=== PATIENT | male | born 1985 | race Caucasian/White ===

== ENCOUNTER 2025-07-23 10:22 | Inpatient (IN) | payer MEDICAID, SELFPAY ==
[2025-07-23 10:27] VITALS: BP 121/77; PULSE 73; RESP 16; TEMP 36.8; O2SAT 96; BMI 28.8
[2025-07-23 10:37] LABS: Hematocrit 46.4 % (37-53); Hemoglobin 15.30 g/dL (11.27-16.99); Mean Corpuscular HGB Conc 33.0 g/dL (30-55); Mean Corpuscular Hemoglobin 29.5 pg (27-33); Mean Corpuscular Volume 89.6 fl (82-101); Nucleated Red Blood Cells % 0 %; Platelet Count 298 10^3/cmm (157-399); Red Blood Count 5.18 10^6/uL (3.85-5.65); White Blood Count 8.96 10^3/uL (3.29-11.43)
[2025-07-23 10:56] LABS: Alanine Aminotransferase 13 U/L (0-41); Albumin Level 4.3 g/dL (3.5-5.2); Alkaline Phosphatase 87 U/L (40-130); Anion Gap 17.1 (5-19); Aspartate Amino Transferase 12 U/L (0-40); Blood Urea Nitrogen 9 mg/dL (6-20); Calcium 9.1 mg/dL (8.5-10.5); Carbon Dioxide 23 mmol/L (22-29); Chloride 105 mmol/L (98-107); Creatinine Clr Calc Pharmacy 97.2518; Globulin 2.5 g/dL (1.3-4.6); Glucose 140 mg/dL (65-115); Osmolality Calculated 293 mOsm/kg (285-295); Potassium 4.1 mmol/L (3.5-5.1); Sodium 141 mmol/L (136-145); Total Protein 6.8 g/dL (6.6-8.7)
[2025-07-23 10:57] LABS: Acetaminophen < 5.0 ug/mL (10-30); Salicylate < 0.3 mg/dL (3-10)
--- NOTE | 2025-07-23 11:25 | ED.C_ITS ---
HPI - Psych 2 General: Chief Complaint: Psychiatric Symptoms Stated Complaint: SI Time Seen by Provider: 07/23/25 10:23 History of Present Illness: 39-year-old male presents emergency room with complaint of suicidal ideation. States has been building for the last several days his father a year ago. Patient states he has a history of bipolar and has been hospitalized in [place] in the past. He recently came to this area to participate in a local rehab since leaving the rehab about a week ago he has been staying at what he describes as a [facility]. He denies having any relapse of substance abuse. He previously had been using relatively large amounts of prescription pain medications. He does not have a specific plan at this time. Related Data Home Medications ?Medication ?Instructions ?Recorded ?Confirmed No Known Home Medications 07/23/2505/10 Allergies Allergy/AdvReac Type Severity Reaction Status Date / Time No Known Allergies Allergy Verified 07/23/25 10:30 Review of Systems 2 Const: Denies: fever(s) or chills Card: Denies: chest pain Resp: Denies: dyspnea GI: Denies: abdominal pain : Denies: dysuria, urinary frequency or urinary urgency Musc: Denies: neck pain or back pain Skin/Breast: Denies: rash Physical Exam 2 Const: COMMON NORMALS: no acute distress GENERAL APPEARANCE: cooperative and comfortable ORIENTATION/CONSCIOUSNESS: Yes awake, Yes oriented to person, Yes oriented to place and Yes oriented to time HENMT: COMMON NORMALS: normocephalic, atraumatic and hearing grossly normal bilaterally HEAD & SCALP: normocephalic and atraumatic Resp: COMMON NORMALS: normal respiratory effort, No retractions, No use of accessory muscles and clear to auscultation bilaterally AUSCULTATION: clear to auscultation bilaterally Cardio: COMMON NORMALS: regular rate, regular rhythm and No murmurs present (Cardio) RATE: regular rate RHYTHM: regular rhythm Extremity: COMMON NORMALS: normal to inspection, capillary refill normal, no clubbing, cyanosis or edema, no calf tenderness and no pedal edema Neuro: SENSORIUM/ORIENTATION: Yes oriented to person, Yes oriented to place and Yes oriented to time Skin: COMMON NORMALS: no rashes or lesions noted GENERAL SKIN EXAM: no rashes or lesions noted Course 2 Vital Signs: Vital signs: Vital Signs Temperature 97.9 F 07/23/25 14:00 Pulse Rate 64 07/23/25 14:00 Respiratory Rate 16 07/23/25 14:00 Blood Pressure 113/62 07/23/25 14:00 Pulse Oximetry 100 07/23/25 14:00 Oxygen Delivery Me thod Room Air 07/23/25 14:00 MDM - Psych Medical Decision Making Patient reports being suicidal has significant thoughts of harming self and escalating the last couple days triggered by having to deal with his father's dealing with estate issues. Does not have a specific plan but states he feels like today is the day. Will admit the patient to MPU discussed with his Dr. Orozco. Orders written. Medical Records I reviewed the patient's medical records. Lab Data I reviewed the patient's lab results. 07/23/25 10:32 07/23/25 10:32 Laboratory Results WBC 8.96 10^3/uL (3.29-11.43) 07/23/25 10:32 RBC 5.18 10^6/uL (3.85-5.65) 07/23/25 10:32 Hgb 15.30 g/dL (11.27-16.99) 07/23/25 10:32 Hct 46.4 % (37-53) 07/23/25 10:32 MCV 89.6 fl (82-101) 07/23/25 10:32 MCH 29.5 pg (27-33) 07/23/25 10:32 MCHC 33.0 g/dL (30-55) 07/23/25 10:32 RDW 12.3 % (12.1-15.1) 07/23/25 10:32 Plt Count 298 10^3/cmm (157-399) 07/23/25 10:32 MPV 9.8 fL (7.4-10.4) 07/23/25 10:32 Neut % (Auto) 67.4 % 07/23/25 10:32 Lymph % (Auto) 25.1 % 07/23/25 10:32 [place] % (Auto) 5.0 % 07/23/25 10:32 Eos % (Auto) 1.8 % 07/23/25 10:32 Baso % (Auto) 0.4 % 07/23/25 10:32 Neut # (Auto) 6.03 10^3/uL (1.8-7.7) 07/23/25 10:32 Lymph # (Auto) 2.3 10^3/uL (0.8-4.8) 07/23/25 10:32 [place] # (Auto) 0.5 10^3/uL (0.2-0.9) 07/23/25 10:32 Eos # (Auto) 0.2 10^3/uL (0.0-0.8) 07/23/25 10:32 Baso # (Auto) 0.0 10^3/uL (0.0-0.1) 07/23/25 10:32 Nucleated RBC % (auto) 0 % 07/23/25 10:32 Nucleated RBCs # 0.0 /100WBC 07/23/25 10:32 Sodium 141 mmol/L (136-145) 07/23/25 10:32 Potassium 4.1 mmol/L (3.5-5.1) 07/23/25 10:32 Chloride 105 mmol/L (98-107) 07/23/25 10:32 Carbon Dioxide 23 mmol/L (22-29) 07/23/25 10:32 Anion Gap 17.1 (5-19) 07/23/25 10:32 BUN 9 mg/dL (6-20) 07/23/25 10:32 Creatinine 1.1 mg/dL (0.7-1.2) 07/23/25 10:32 GFR Calculation 74.9 mL/min (90-130) L 07/23/25 10:32 Glucose 140 mg/dL (65-115) H 07/23/25 10:32 Calculated Osmolality 293 mOsm/kg (285-295) 07/23/25 10:32 Calcium 9.1 mg/dL (8.5-10.5) 07/23/25 10:32 Total Bilirubin 0.3 mg/dL (0.15-1.2) 07/23/25 10:32 AST 12 U/L (0-40) 07/23/25 10:32 ALT 13 U/L (0-41) 07/23/25 10:32 Alkaline Phosphatase 87 U/L (40-130) 07/23/25 10:32 Total Protein 6.8 g/dL (6.6-8.7) 07/23/25 10:32 Albumin 4.3 g/dL (3.5-5.2) 07/23/25 10:32 Globulin 2.5 g/dL (1.3-4.6) 07/23/25 10:32 Salicylates < 0.3 mg/dL (3-10) L 07/23/25 10:32 Acetaminophen < 5.0 ug/mL (10-30) L 07/23/25 10:32 All radiology interpretation(s) finalized by discharge Discharge Plan Discharge Patient Disposition: Admitted As Inpatient Admit Provider: Catalino Orozco Clinical Impression: Suicidal ideation Condition: Stable Coding Level of Care Code ED Bioinformatics Specialist for Jaxon Knowles
--- NOTE | 2025-07-23 12:34 | PC.NURSE ---
96 hour hold rights read to pt at this time. Security present.
[2025-07-23 12:43] VITALS: BP 134/85; PULSE 62; RESP 17; TEMP 36.9; O2SAT 97
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
[2025-07-23 14:00] VITALS: BP 113/62; PULSE 64; RESP 16; TEMP 36.6; O2SAT 100
--- NOTE | 2025-07-23 18:04 | PC.NURSE ---
Dr. Orozco gave verbal order for Benadryl 50mg PO Q 4hr prn for itching.
[2025-07-23 18:50] LABS: PCP Screen Urine Negative (Negative)
--- NOTE | 2025-07-23 19:50 | PC.NURSE ---
CONSULT DR GANDARA HERE TO SEE PATIENT IN REGARDS TO POSSIBLE POISON JEAN MARIE.
[2025-07-23 20:29] VITALS: BP 156/96; PULSE 75; RESP 20; TEMP 37.1; O2SAT 97
--- NOTE | 2025-07-23 20:45 | P.CONIM_ITS ---
Providers/Reason For Consult 2 Consulting Physician/Specialty*: ERIN GANDARA --DO--hospitalist Reason for Consult*: Management of poison kalyani Requesting Physician: Dr. Ernesto Bae Attending Physician: Catalino Orozco MD History of Present Illness History of Present Illness Usman Garcia is a 39 year old male with medical history significant for suicidal ideation, bipolar disorder with psychiatric hospitalization in the last past year. This time patient presented to the emergency room today complaining of suicidal thoughts but no plans. Patient was screened and cleared to go to psych patient came to the [facility]. This psychiatrist Dr. Ernesto Bae called and consulted me on this patient regarding a poison kalyani he had had for me to see and evaluate and treat. I have seen and evaluated patient at this time and patient related that this has been coming and going and extremely itchy. One of the lesions looks typically like poison kalyani with tracking. Patient had it in the arms side of the belly and also on the legs Patient had been using a Hydrocortisol cream topically and this had not helped. I have seen and evaluated patient patient need to take something systemic like oral steroid and also with an added Benadryl to help. Patient looks good and denies any complaints aside from this medically patient is send to be stable and okay from medical standpoint that we will optimize poison kalyani and treat. Review of Systems 2 Narrative: System review upon tenogram reviewed we are entirely unremarkable. Except for the integumentary system significant for poison kalyani Medications/Allergies Home Medications ?Medication ?Instructions ?Recorded ?Confirmed ?Last Taken ?Type No Known Home Medications 07/23/2505/10 Unknown History Allergies Allergy/AdvReac Type Severity Reaction Status Date / Time No Known Allergies Allergy Verified 07/23/25 10:30 Current Medications Generic Name Dose Route Start Last Admin Trade Name Freq PRN Reason Stop Dose Admin Diphenhydramine HCl 50 mg 07/23/25 18:03 07/23/25 18:53 Diphenhydramine 50 Mg Capsule PO 50 mg Q4H PRN Administration ITCHING Hydrocortisone 1 applic 07/23/25 17:40 07/23/25 17:56 Hydrocortisone 1% Cream 28 Gm TOPICAL 1 applic QID PRN Administration RASH Nicotine Polacrilex 4 mg 07/23/25 17:26 07/23/25 17:56 Nicotine 4 Mg Lozenge MUCOUS MEM 4 mg Q2H PRN Administration NICOTINE CRAVINGS Olanzapine 5 mg 07/23/25 12:43 07/23/25 20:38 Olanzapine 5 Mg Odt PO 5 mg Q4H PRN Administration Agitation/Psychosis Vitals/I&O/Wt Last Vital Signs Temp 98.8 F 07/23/25 20:29 Pulse 75 07/23/25 20:29 Resp 20 H 07/23/25 20:29 BP 156/96 07/23/25 20:29 Pulse Ox 97 07/23/25 20:29 O2 Del Method Room Air 07/23/25 20:29 Weight last 48 hrs Weight 86.183 kg Physical Exam 2 Narrative: The patient looks well in no apparent distress however with obesity. BMI 28.9 kg/m? HEENT normocephalic atraumatic neck neck is supple cardiovascular heart rate is regular lungs are pretty much clear abdomen soft nontender nondistended unremarkable extremities are intact no edema has good pulses neurology has no focality integumentary has scattered area of poison kalyani lesions and extremely itchy for the patient. lab studies lab studies reviewed and noted. Lab studies found to be normal. Data 07/23/25 10:32 07/23/25 10:32 A&P Assessment and plan 1. Poison kalyani dermatitis: 2. Suicidal ideation: Plan: Poison kalyani dermatitis - Patient had had this off and on for the past 3 weeks - This need to be treated systemically not topically - I have ordered steroid 20 mg once daily for 7 days with a normal dose of 40 mg orally and 50 mg of Benadryl now. - Patient will continue Benadryl 25 mg twice daily x 7 days and should not operate any vehicle while on Benadryl. Suicidal ideation-this is deferred to the primary team psychiatry for care and treatment I appreciate this consult allowing me to participate in the care of your patient. Will follow-up for care. PDMP PDMP Reviewed: Not Reviewed Consult Attestations 2 Medical Necessity Statement: Patient is with poison kalyani based on this alone this will not have patient stay overnight in the hospital bed patient is here for suicidal ideation and being treated by the psychiatry. Poison kalyani at this time has been addressed. Coding Level of Care Code 85144 Diagnoses Poison kalyani dermatitis L23.7 Suicidal ideation R45.851 Time Spent (min) 60
[2025-07-24 06:00] VITALS: BP 118/74; PULSE 63; RESP 16; TEMP 37.1; O2SAT 94
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
--- NOTE | 2025-07-24 13:11 | P.PN_ITS ---
Subjective 2 Subjective: lesions improved. Vitals/I&O/Wt Last Vital Signs Temp 98.8 F 07/24/25 06:00 Pulse 63 07/24/25 06:00 Resp 16 07/24/25 06:00 BP 118/74 07/24/25 06:00 Pulse Ox 94 07/24/25 06:00 O2 Del Method Room Air 07/24/25 06:00 Weight last 48 hrs Weight 86.183 kg Physical Exam 2 Const: COMMON NORMALS: no acute distress, average body habitus, patient oriented x3 and healthy appearing HENMT: COMMON NORMALS: normocephalic and atraumatic HEAD & SCALP: n ormocephalic and atraumatic Eye: COMMON NORMALS: Equal, round and reactive pupils present and EOMs intact bilaterally PUPIL: Yes Equal, round and reactive pupils present Resp: COMMON NORMALS: normal respiratory effort, No retractions, No use of accessory muscles and clear to auscultation bilaterally AUSCULTATION: clear to auscultation bilaterally Cardio: COMMON NORMALS: regular rate, regular rhythm, S1 normal heart sound present, S2 normal heart sound present, No gallops present (Cardio), No murmurs present (Cardio), No rub (Cardio) and Peripheral pulses 2+ throughout RATE: r egular rate RHYTHM: regular rhythm HEART SOUNDS: S1 normal heart sound present and S2 normal heart sound present PERIPHERAL PULSES: Peripheral pulses 2+ throughout GI: COMMON NORMALS: Soft to palpation, non-tender, no masses and no bruits PALPATION: Yes Soft to palpation Neuro: COMMON NORMALS: patient oriented x3, no focal motor deficits and no sensory deficits noted Skin: NARRATIVE SKIN EXAM: scattered rash over left anterior forearm and BL shins, as well as flanks, appear to be healing. Data 07/23/25 10:32 07/23/25 10:32 A&P Assessment and plan 1. Poison kalyani dermatitis: 2. Suicidal ideation: Plan: 39 year old male presenting with SI, admitted to [facility]. Hospitalists consulted for medical management of skin lesions. 1. Poison kalyani dermatitis: - Patient had had this off and on for the past 3 weeks - Started systemic treatment with steroid 20 mg once daily for 7 days - cont. benadryl 50 mg Q4H PRN. 2. Suicidal ideation: - treatment per psychiatry Disposition: - appreciate this consult allowing me to participate in the care of your patient. Will follow-up for care. PDMP PDMP Reviewed: Not Reviewed Attestations 2 Medical Necessity Statement*: ongoing inpatient treatment in [facility] for SI. Time Spent in Patient Care: 16 - 35 minutes (>than 50% of time sp ent in counselling and/or direct pt care on unit) . Coding Level of Care Code Acute Code for [facility] Fwd Diagnoses Poison kalyani dermatitis L23.7 Suicidal ideation R45.851
[2025-07-24 13:25] VITALS: BP 149/69; PULSE 67; RESP 16; TEMP 37.1; O2SAT 96
[2025-07-24 22:00] VITALS: BP 131/73; PULSE 82; RESP 18; TEMP 37.2; O2SAT 98
[2025-07-25 06:00] VITALS: BP 112/52; PULSE 79; RESP 18; TEMP 36.6; O2SAT 95
--- NOTE | 2025-07-25 07:28 | P.NPUPN_ITS ---
Subjective NPU 2 Subjective: Patient presented today reporting things are going fairly well. He continues to make calls to rehab and is trying to determine the options that he has at these different places. Otherwise he endorsed a plan to continue his medication as prescribed and take what ever opportunity presents itself soon as possible. He denied any side effects to his medication. Mental Status Exam 2 MSE Comments: This is an overweight versus obese white male in hospital side with limited grooming but adequate eye contact. No abnormal movements. Cooperative with exam in mild to moderate distress. Speech was mostly normal rate and volume. Mood described as a little better and here, affect congruent. Thought process organized. Thought content: Patient denied current suicidal or homicidal ideation, no delusions reported or noted, he denied any auditory or visual hallucinations. Reports struggling with depression and anxiety, with roots in past traumatic events, including the suicide of his father last December. Experiences tiredness and has been burning the midnight oil. Stressors include past traumatic events, substance use, and legal issues. Demonstrates reasoning and understanding in discussions about fishing techniques and personal accountability. Attention and concentration were intact and memory appeared reliable but none were formally tested. He is alert and oriented x 3. Insight appears fair judgment is limited and impulse control is impaired. Vitals/I&O/Wt Last Vital Signs Temp 97.9 F 07/25/25 06:00 Pulse 79 07/25/25 06:00 Resp 18 07/25/25 06:00 BP 112/52 07/25/25 06:00 Pulse Ox 95 07/25/25 06:00 O2 Del Method Room Air 07/25/25 06:00 Weight last 48 hrs Weight 86.183 kg Data NPU 07/23/25 10:32 07/23/25 10:32 A&P Assessment and plan 1. Poison kalyani dermatitis: 2. Suicidal ideation: 3. Depression: 4. Bereavement: 5. Cannabis use disorder: 6. Opioid use disorder, severe, on maintenance therapy: Plan: This is a 39-year-old white male with a long history of addiction and mental health issues who presents after relapsing at a sober living facility. He endorses being hopeful to get into rehab and restart the journey of recovery. Substance use disorder with recent relapse following cessation of Suboxone approximately two weeks ago. Ongoing depressive and anxiety symptoms, with history of trauma and bereavement contributing to psychological distress. Medication nonadherence secondary to loss of access and insurance uncertainty. Plan Restartemedications as previously prescribed. Spoke with nursing staff to confirm current medication regimen and initiate appropriate therapy. Encouraged taking recovery one day at a time to support sustained sobriety. Recommended connecting with supportive resources and facilities, with follow-up to ensure engagement and continued support. 1. Restart medications. Need to confirm medications since they were provided by [facility]. 2. Encourage individual, group and milieu therapy. 3. Continue every 15 minute checks for safety. 4. Obtain collateral information. PDMP PDMP Reviewed: Not Reviewed Involuntary Hold Information 2 Hold Status: Date/Time Hold Expires: voluntary Attestations NPU 2 Medical Necessity Statement*: Inpatient hospitalization is medically necessary and the clinically appropriate intervention at this time. Will monitor/initiate medications and make changes as indicated. Likely length of stay 2-4 days. Coding Level of Care Code Acute Code for [facility] Fwd Diagnoses Poison kalyani dermatitis L23.7 Suicidal ideation R45.851 Depression F32.A Bereavement Z63.4 Cannabis use disorder F12.90 Opioid use disorder, severe, on maintenance therapy F11.20
--- NOTE | 2025-07-25 13:41 | P.PN_ITS ---
Subjective 2 Subjective: Skin lesions improving. Vitals/I&O/Wt Last Vital Signs Temp 97.9 F 07/25/25 06:00 Pulse 79 07/25/25 06:00 Resp 18 07/25/25 06:00 BP 112/52 07/25/25 06:00 Pulse Ox 95 07/25/25 06:00 O2 Del Method Room Air 07/25/25 06:00 Physical Exam 2 Narrative: Physical Exam Const: no acute distress, average body habi tus, patient orien oz x3 and healthy appearing HENMT: normocephalic and atraumatic Eye: Equal, round and r eactive pupils pre sent and EOMs inta ct bilaterally Resp: normal respiratory effort, No retrac tions, No use of a ccessory muscles a nd clear to auscul tation bilaterally Cardio: regular rate, regu lar rhythm, S1/S2 normal, No gallops , No murmurs, No r ub. Peripheral pul ses 2+ throughout GI: Soft to palpation, non-tender, no ma sses Neuro: Alert & oriented x 3, no focal motor deficits and no se nsory deficits not ed Skin: Scattered rash ove r left anterior fo rearm and BL shins , as well as flank s, improved from p rior. Data 07/23/25 10:32 07/23/25 10:32 A&P Assessment and plan 1. Poison kalyani dermatitis: 2. Suicidal ideation: Plan: 39 year old male presenting with SI, [facility] Hospitalists consulted for medical management of skin lesions. 1. Poison kalyani dermatitis: - Patient has had this off and on for the past 3 weeks - Started systemic treatment with steroid 20 mg once daily for 7 days - cont. benadryl 50 mg Q4H PRN. 2. Suicidal ideation: - treatment per psychiatry Disposition: - appreciate this consult allowing me to participate in the care of your patient. Will follow-up for care. PDMP PDMP Reviewed: Not Reviewed Attestations 2 Medical Necessity Statement*: Ongoing inpatient per psychiatry recommendations. Time Spent in Patient Care: 16 - 35 minutes (>than 50% of time sp ent in counselling and/or direct pt care on unit) . Coding Level of Care Code Acute Code for [facility] Fw Diagnoses Poison kalyani dermatitis L23.7 Suicidal ideation R45.851
[2025-07-25 14:00] VITALS: BP 170/96; PULSE 72; RESP 19; O2SAT 99
[2025-07-25 20:27] VITALS: BP 131/63; PULSE 67; RESP 18; TEMP 37.1; O2SAT 96
[2025-07-26 06:00] VITALS: BP 157/75; PULSE 58; RESP 17; TEMP 37; O2SAT 97
--- NOTE | 2025-07-26 13:56 | P.PN_ITS ---
Subjective 2 Subjective: rash improving. Vitals/I&O/Wt Last Vital Signs Temp 98.6 F 07/26/25 06:00 Pulse 58 L 07/26/25 06:00 Resp 17 07/26/25 06:00 BP 157/75 07/26/25 06:00 Pulse Ox 97 07/26/25 06:00 O2 Del Method Room Air 07/26/25 06:00 Physical Exam 2 Narrative: Physical Exam Const: no acute distress, average body habitus, patient oriented x3 and healthy appearing HENMT: normocephalic and atraumatic Eye: Equal, round and reactive pupils present and EOMs intact bilaterally Resp: normal respiratory effort, No retractions, No use of accessory muscles and clear to auscultation bilaterally Cardio: regular rate, regular rhythm, S1/S2 normal, No gallops, No murmurs, No rub. Peripheral pulses 2+ throughout GI: Soft to palpation, non-tender, no masses Neuro: Alert & oriented x 3, no focal motor deficits and no sensory deficits noted Skin: Scattered rash over left anterior forearm and BL shins, as well as flanks, improved from prior. Data 07/23/25 10:32 07/23/25 10:32 A&P Assessment and plan 1. Suicidal ideation: 2. Poison kalyani dermatitis: Plan: 39 year old male presenting with SI, [facility]. Hospitalists consulted for medical management of skin lesions. 1. Poison kalyani dermatitis: - Patient has had this off and on for the past 3 weeks - Started systemic treatment with steroid 20 mg once daily for 7 days, or if resolved can stop steroids. - cont. benadryl 50 mg Q4H PRN. 2. Suicidal ideation: - treatment per psychiatry Disposition: - appreciate this consult allowing me to participate in the care of your patient. Will follow-up for care. PDMP PDMP Reviewed: Not Reviewed Attestations 2 Medical Necessity Statement*: ongoing inpatient psychiatric care per psychiatrist recommendations. Time Spent in Patient Care: 16 - 35 minutes (>than 50% of time sp ent in counselling and/or direct pt care on unit) . Coding Level of Care Code Acute Code for [facility] Fwd Diagnoses Suicidal ideation R45.851 Poison kalyani dermatitis L23.7
[2025-07-26 14:00] VITALS: BP 133/73; PULSE 86; RESP 18; TEMP 37.1; O2SAT 96
--- NOTE | 2025-07-26 19:38 | P.NPUPN_ITS ---
Subjective NPU 2 Subjective: Patient presented today reporting that things are improving. He was able to work with the program in the community and he will be excepted on Tuesday. We agreed we would restart his medication after of discussion of the risks, benefits and alternatives he understood and agreed to proceed as is documented in this note. We restarted his medications except for the Suboxone as the program he is going to will not allow controlled substances. He discussed his challenging time that his last sober living program. He denied any side effects to the medication. Mental Status Exam 2 MSE Comments: This is an overweight versus obese white male in hospital side with limited grooming but adequate eye contact. No abnormal movements. Cooperative with exam in mild distress. Speech was mostly normal rate and volume. Mood described as getting better, affect congruent. Thought process organized. Thought content: Patient denied current suicidal or homicidal ideation, no delusions reported or noted, he denied any auditory or visual hallucinations. Attention and concentration were intact and memory appeared reliable but none were formally tested. He is alert and oriented x 3. Insight appears fair judgment is limited but improving and impulse control is limited. Vitals/I&O/Wt Last Vital Signs Temp 98.7 F 07/26/25 14:00 Pulse 86 07/26/25 14:00 Resp 18 07/26/25 14:00 BP 133/73 07/26/25 14:00 Pulse Ox 96 07/26/25 14:00 O2 Del Method Room Air 07/26/25 14:00 Data NPU 07/23/25 10:32 07/23/25 10:32 A&P Assessment and plan 1. Poison kalyani dermatitis: 2. Suicidal ideation: 3. Depression: 4. Bereavement: 5. Cannabis use disorder: 6. Opioid use disorder, severe, on maintenance therapy: Plan: This is a 39-year-old white male with a long history of addiction and mental health issues who presents after relapsing at a sober living facility. He endorses being hopeful to get into rehab and restart the journey of recovery. Substance use disorder with recent relapse following cessation of Suboxone approximately two weeks ago. Ongoing depressive and anxiety symptoms, with history of trauma and bereavement contributing to psychological distress. Medication nonadherence secondary to loss of access and insurance uncertainty. Plan Restartemedications as previously prescribed. Spoke with nursing staff to confirm current medication regimen and initiate appropriate therapy. Encouraged taking recovery one day at a time to support sustained sobriety. Recommended connecting with supportive resources and facilities, with follow-up to ensure engagement and continued support. 1. Restart medications. Need to confirm medications since they were provided by [facility]. Medications confirmed and restarted at appropriate doses. Patient to start Suboxone as he was excepted at a program that does not allow controlled substances 2. Encourage individual, group and milieu therapy. 3. Continue every 15 minute checks for safety. 4. Obtain collateral information. 5. Plan for discharge on Tuesday to sober living program. PDMP PDMP Reviewed: Not Reviewed Involuntary Hold Information 2 Hold Status: Date/Time Hold Expires: voluntary Attestations NPU 2 Medical Necessity Statement*: Inpatient hospitalization is medically necessary and the clinically appropriate intervention at this time. Will monitor/initiate medications and make changes as indicated. Likely length of stay 3 days. Coding Level of Care Code Acute Code for g Fwd Diagnoses Poison kalyani dermatitis L23.7 Suicidal ideation R45.851 Depression F32.A Bereavement Z63.4 Cannabis use disorder F12.90 Opioid use disorder, severe, on maintenance therapy F11.20
[2025-07-26 21:59] VITALS: BP 166/87; PULSE 77; RESP 18; TEMP 36.9; O2SAT 90
[2025-07-27 06:00] VITALS: BP 123/80; PULSE 65; RESP 18; TEMP 36.8; O2SAT 98
--- NOTE | 2025-07-27 11:00 | P.NPUPN_ITS ---
Subjective NPU 2 Subjective: Patient presented today reporting that he he was wondering about the Suboxone and we discussed the fact that the place that he is planning on attending would not allow for any controlled substances. We discussed the fact that we would look into Sublocade and possibly also consider that if he does not stay with this program he could in fact work with his [facility] provider and get on Suboxone later but for now we are trying to did not interfere with the opportunity he has on Tuesday. He denied any side effects to his medication. Mental Status Exam 2 MSE Comments: This is an overweight versus obese white male in hospital side with improving grooming but adequate eye contact. No abnormal movements. Cooperative with exam in mild distress. Speech was mostly normal rate and volume. Mood described as getting better, affect congruent. Thought process organized. Thought content: Patient denied current suicidal or homicidal ideation, no delusions reported or noted, he denied any auditory or visual hallucinations. Attention and concentration were intact and memory appeared reliable but none were formally tested. He is alert and oriented x 3. Insight appears fair judgment is limited but improving and impulse control is limited. Vitals/I&O/Wt Last Vital Signs Temp 98.3 F 07/27/25 06:00 Pulse 65 07/27/25 06:00 Resp 18 07/27/25 06:00 BP 123/80 07/27/25 06:00 Pulse Ox 98 07/27/25 06:00 O2 Del Method Room Air 07/27/25 06:00 Weight last 48 hrs Weight 123.196 kg Data NPU 07/23/25 10:32 07/23/25 10:32 A&P Assessment and plan 1. Poison kalyani dermatitis: 2. Suicidal ideation: 3. Depression: 4. Bereavement: 5. Cannabis use disorder: 6. Opioid use disorder, severe, on maintenance therapy: Plan: This is a 39-year-old white male with a long history of addiction and mental health issues who presents after relapsing at a sober living facility. He endorses being hopeful to get into rehab and restart the journey of recovery. Substance use disorder with recent relapse following cessation of Suboxone approximately two weeks ago. Ongoing depressive and anxiety symptoms, with history of trauma and bereavement contributing to psychological distress. Medication nonadherence secondary to loss of access and insurance uncertainty. Plan Restartemedications as previously prescribed. Spoke with nursing staff to confirm current medication regimen and initiate appropriate therapy. Encouraged taking recovery one day at a time to support sustained sobriety. Recommended connecting with supportive resources and facilities, with follow-up to ensure engagement and continued support. 1. Restart medications. Need to confirm medications since they were provided by [facility]. Medications confirmed and restarted at appropriate doses. Patient to start Suboxone as he was excepted at a program that does not allow controlled substances 2. Encourage individual, group and milieu therapy. 3. Continue every 15 minute checks for safety. 4. Obtain collateral information. 5. Plan for discharge on Tuesday to sober living program. PDMP PDMP Reviewed: Not Reviewed Involuntary Hold Information 2 Hold Status: Date/Time Hold Expires: voluntary Attestations NPU 2 Medical Necessity Statement*: Inpatient hospitalization is medically necessary and the clinically appropriate intervention at this time. Will monitor/initiate medications and make changes as indicated. Likely length of stay 2 days. Coding Level of Care Code Acute Code for [facility] Fwd Diagnoses Poison kalyani dermatitis L23.7 Suicidal ideation R45.851 Depression F32.A Bereavement Z63.4 Cannabis use disorder F12.90 Opioid use disorder, severe, on maintenance therapy F11.20
[2025-07-27] MEDS: venlafaxine ER (24HR) 75 mg Capsule PO (11:52)
[2025-07-27 12:56] VITALS: BP 128/76; PULSE 72; RESP 18; TEMP 37; O2SAT 94
--- NOTE | 2025-07-27 15:51 | P.PN_ITS ---
Subjective 2 Subjective: Rash has improved. Vitals/I&O/Wt Last Vital Signs Temp 98.6 F 07/27/25 12:56 Pulse 72 07/27/25 12:56 Resp 18 07/27/25 12:56 BP 128/76 07/27/25 12:56 Pulse Ox 94 07/27/25 12:56 O2 Del Method Room Air 07/27/25 12:56 Physical Exam 2 Narrative: Physical Exam Const: no acute distress, average body habitus, patient oriented x3 and healthy appearing HENMT: normocephalic and atraumatic Eye: Equal, round and reactive pupils present and EOMs intact bilaterally Resp: normal respiratory effort, No retractions, No use of accessory muscles and clear to auscultation bilaterally Cardio: regular rate, regular rhythm, S1/S2 normal, No gallops, No murmurs, No rub. Peripheral pulses 2+ throughout GI: Soft to palpation, non-tender, no masses Neuro: Alert & oriented x 3, no focal motor deficits and no sensory deficits noted Skin: Scattered rash over left anterior forearm and BL shins, as well as flanks, improved from prior. Data 07/23/25 10:32 07/23/25 10:32 A&P Assessment and plan 1. Poison kalyani dermatitis: 2. Suicidal ideation: Plan: 39 year old male presenting with SI, [facility] Hospitalists consulted for medical management of skin lesions. 1. Poison kalyani dermatitis: - Patient has had this off and on for the past 3 weeks - Started systemic treatment with steroid 20 mg once daily for 7 days, or if resolved can stop steroids. - cont. benadryl 50 mg Q4H PRN. 2. Suicidal ideation: - treatment per psychiatry Disposition: - appreciate this consult allowing me to participate in the care of your patient. Will follow-up for care. - the patient is planning on entering a sober living inpatient program on Tuesday. PDMP PDMP Reviewed: Not Reviewed Attestations 2 Medical Necessity Statement*: ongoing inpatient treatment per psychiatry recommendations. Coding Level of Care Code Acute Code for [facility] Fw Diagnoses Poison kalyani dermatitis L23.7 Suicidal ideation R45.851
[2025-07-27 19:52] VITALS: BP 123/75; PULSE 67; RESP 18; TEMP 37.2; O2SAT 95
[2025-07-28 06:00] VITALS: BP 139/85; PULSE 78; RESP 18; TEMP 36.5; O2SAT 97
[2025-07-28] MEDS: venlafaxine ER (24HR) 75 mg Capsule PO (08:25)
--- NOTE | 2025-07-28 11:48 | P.PN_ITS ---
Subjective 2 Subjective: Lesions improved. Vitals/I&O/Wt Last Vital Signs Temp 97.7 F 07/28/25 06:00 Pulse 78 07/28/25 06:00 Resp 18 07/28/25 06:00 BP 139/85 07/28/25 06:00 Pulse Ox 97 07/28/25 06:00 O2 Del Method Room Air 07/28/25 06:00 Weight last 48 hrs Weight 123.196 kg Physical Exam 2 Narrative: Physical Exam Const: no acute distress, average body habitus, patient oriented x3 and healthy appearing HENMT: normocephalic and atraumatic Eye: Equal, round and reactive pupils present and EOMs intact bilaterally Resp: normal respiratory effort, No retractions, No use of accessory muscles and clear to auscultation bilaterally Cardio: regular rate, regular rhythm, S1/S2 normal, No gallops, No murmurs, No rub. Peripheral pulses 2+ throughout GI: Soft to palpation, non-tender, no masses Neuro: Alert & oriented x 3, no focal motor deficits and no sensory deficits noted Skin: Scattered rash over left anterior forearm and BL shins, as well as flanks, improved from prior. Data 07/23/25 10:32 07/23/25 10:32 A&P Assessment and plan 1. Opioid use disorder, severe, on maintenance therapy: 2. Cannabis use disorder: 3. Poison kalyani dermatitis: 4. Suicidal ideation: Plan: 39 year old male presenting with SI, [facility] Hospitalists consulted for medical management of skin lesions. 1. Poison kalyani dermatitis: - Patient has had this off and on for the past 3 weeks - Started systemic treatment with steroid 20 mg once daily for 7 days, or if resolved can stop steroids. - cont. benadryl 50 mg Q4H PRN. 2. Suicidal ideation: - treatment per psychiatry Disposition: - appreciate this consult allowing me to participate in the care of your patient. Will follow-up for care. - the patient is planning on entering a sober living inpatient program on Tuesday. PDMP PDMP Reviewed: Not Reviewed Attestations 2 Medical Necessity Statement*: Ongoing neuropsych admission per psychiatry recs. Coding Level of Care Code Acute Code for [facility] Fwd Diagnoses Opioid use disorder, severe, on maintenance therapy F11.20 Cannabis use disorder F12.90 Poison kalyani dermatitis L23.7 Suicidal ideation R45.851
[2025-07-28 13:44] VITALS: BP 145/88; PULSE 78; RESP 16; TEMP 37.3; O2SAT 96
--- NOTE | 2025-07-28 14:41 | P.NPUPN_ITS ---
Subjective NPU 2 Subjective: Patient presented today reporting that he is doing fine. He appears to be looking forward to discharge tomorrow and connecting with the sober living program. We discussed again a process by which she could resume the Suboxone if he desired. But this new program is not excepted every 4 with controlled substances. And he only had a 1 week prescriptions of his Suboxone since he left [facility]. We discussed working with the social work team tomorrow to make arrangements to get him to the facility. He denied any side effects of medication. Mental Status Exam 2 MSE Comments: This is an overweight versus obese white male in hospital side with improving grooming but adequate eye contact. No abnormal movements. Cooperative with exam in mild distress. Speech was mostly normal rate and volume. Mood described as getting better, affect congruent. Thought process organized. Thought content: Patient denied current suicidal or homicidal ideation, no delusions reported or noted, he denied any auditory or visual hallucinations. Attention and concentration were intact and memory appeared reliable but none were formally tested. He is alert and oriented x 3. Insight appears fair judgment is limited but improving and impulse control is limited. Vitals/I&O/Wt Last Vital Signs Temp 99.1 F 07/28/25 13:44 Pulse 78 07/28/25 13:44 Resp 16 07/28/25 13:44 BP 145/88 07/28/25 13:44 Pulse Ox 96 07/28/25 13:44 O2 Del Method Room Air 07/28/25 13:44 Weight last 48 hrs Weight 123.196 kg Data NPU 07/23/25 10:32 07/23/25 10:32 A&P Assessment and plan 1. Poison kalyani dermatitis: 2. Suicidal ideation: 3. Depression: 4. Bereavement: 5. Cannabis use disorder: 6. Opioid use disorder, severe, on maintenance therapy: Plan: This is a 39-year-old white male with a long history of addiction and mental health issues who presents after relapsing at a sober living facility. He endorses being hopeful to get into rehab and restart the journey of recovery. Substance use disorder with recent relapse following cessation of Suboxone approximately two weeks ago. Ongoing depressive and anxiety symptoms, with history of trauma and bereavement contributing to psychological distress. Medication nonadherence secondary to loss of access and insurance uncertainty. Plan Restartemedications as previously prescribed. Spoke with nursing staff to confirm current medication regimen and initiate appropriate therapy. Encouraged taking recovery one day at a time to support sustained sobriety. Recommended connecting with supportive resources and facilities, with follow-up to ensure engagement and continued support. 1. Restart medications. Need to confirm medications since they were provided by [facility]. Medications confirmed and restarted at appropriate doses. Patient to start Suboxone as he was excepted at a program that does not allow controlled substances 2. Encourage individual, group and milieu therapy. 3. Continue every 15 minute checks for safety. 4. Obtain collateral information. 5. Plan for discharge on Tuesday to sober living program. PDMP PDMP Reviewed: Not Reviewed Involuntary Hold Information 2 Hold Status: Date/Time Hold Expires: voluntary Attestations NPU 2 Medical Necessity Statement*: Inpatient hospitalization is medically necessary and the clinically appropriate intervention at this time. Will monitor/initiate medications and make changes as indicated. Likely length of stay 1 days. Coding Level of Care Code Acute Code for [facility] Fwd Diagnoses Poison kalyani dermatitis L23.7 Suicidal ideation R45.851 Depression F32.A Bereavement Z63.4 Cannabis use disorder F12.90 Opioid use disorder, severe, on maintenance therapy F11.20
[2025-07-28 19:46] VITALS: BP 155/98; PULSE 75; RESP 18; O2SAT 97
[2025-07-29 06:00] VITALS: BP 138/79; PULSE 64; RESP 18; TEMP 37; O2SAT 98
[2025-07-29] MEDS: venlafaxine ER (24HR) 75 mg Capsule PO (08:43)
--- NOTE | 2025-07-29 12:18 | W.PM.NPUDCS ---
Diagnoses at Discharge Discharge Diagnosis 1. Poison kalyani dermatitis: 2. Suicidal ideation: 3. Depression: 4. Bereavement: 5. Cannabis use disorder: 6. Opioid use disorder, severe, on maintenance therapy: Reason for Visit Reason for Visit: SI Involuntary Hold Information Hold Status: Date/Time Hold Expires: voluntary Discharge Data Studies Completed and Pending: Laboratory Results WBC 8.96 10^3/uL (3.2 9-11.43) 07/23/25 10:32 RBC 5.18 10^6/uL (3.8 5-5.65) 07/23/25 10:32 Hgb 15.30 g/dL (11.27 -16.99) 07/23/25 10:32 Hct 46.4 % (37-53) 07/23/25 10:32 MCV 89.6 fl (82-101) 07/23/25 10:32 MCH 29.5 pg (27-33) 07/23/25 10:32 MCHC 33.0 g/dL (30-55) 07/23/25 10:32 RDW 12.3 % (12.1-15.1 ) 07/23/25 10:32 Plt Count 298 10^3/cmm (157 -399) 07/23/25 10:32 MPV 9.8 fL (7.4-10.4) 07/23/25 10:32 Neut % (Auto) 67.4 % 07/23/25 10:32 Lymph % (Auto) 25.1 % 07/23/25 10:32 [place] % (Auto) 5.0 % 07/23/25 10:32 Eos % (Auto) 1.8 % 07/23/25 10:32 Baso % (Auto) 0.4 % 07/23/25 10:32 Neut # (Auto) 6.03 10^3/uL (1.8 -7.7) 07/23/25 10:32 Lymph # (Auto) 2.3 10^3/uL (0.8- 4.8) 07/23/25 10:32 [place] # (Auto) 0.5 10^3/uL (0.2- 0.9) 07/23/25 10:32 Eos # (Auto) 0.2 10^3/uL (0.0- 0.8) 07/23/25 10:32 Baso # (Auto) 0.0 10^3/uL (0.0- 0.1) 07/23/25 10:32 Nucleated RBC % (a uto) 0 % 07/23/25 10:32 Nucleated RBCs # 0.0 /100WBC 07/23/25 10:32 Sodium 141 mmol/L (136-1 45) 07/23/25 10:32 Potassium 4.1 mmol/L (3.5-5 .1) 07/23/25 10:32 Chloride 105 mmol/L (98-10 7) 07/23/25 10:32 Carbon Dioxide 23 mmol/L (22-29) 07/23/25 10:32 Anion Gap 17.1 (5-19) 07/23/25 10:32 BUN 9 mg/dL (6-20) 07/23/25 10:32 Creatinine 1.1 mg/dL (0.7-1. 2) 07/23/25 10:32 GFR Calculation 74.9 mL/min (90-1 30) L 07/23/25 10:32 Glucose 140 mg/dL (65-115 ) H 07/23/25 10:32 Calculated Osmolal ity 293 mOsm/kg (285- 295) 07/23/25 10:32 Calcium 9.1 mg/dL (8.5-10 .5) 07/23/25 10:32 Total Bilirubin 0.3 mg/dL (0.15-1 .2) 07/23/25 10:32 AST 12 U/L (0-40) 07/23/25 10:32 ALT 13 U/L (0-41) 07/23/25 10:32 Alkaline Phosphata se 87 U/L (40-130) 07/23/25 10:32 Total Protein 6.8 g/dL (6.6-8.7 ) 07/23/25 10:32 Albumin 4.3 g/dL (3.5-5.2 ) 07/23/25 10:32 Globulin 2.5 g/dL (1.3-4.6 ) 07/23/25 10:32 Salicylates < 0.3 mg/dL (3-10 ) L 07/23/25 10:32 Urine Opiates Scre en Negative ng/mL (N egative) 07/23/25 17:49 Acetaminophen < 5.0 ug/mL (10-3 0) L 07/23/25 10:32 Ur Barbiturates Sc reen Negative ng/mL (N egative) 07/23/25 17:49 Ur Phencyclidine S crn Negative ng/mL (N egative) 07/23/25 17:49 Ur Amphetamines Sc reen Negative ng/mL (N egative) 07/23/25 17:49 U Benzodiazepines Scrn Negative ng/mL (N egative) 07/23/25 17:49 Urine Cocaine Scre en Negative ng/mL (N egative) 07/23/25 17:49 U Marijuana (THC) Screen Positive ng/mL (N egative) H 07/23/25 17:49 Vitals: Last Vital Signs Temp 98.6 F 07/29/25 06:00 Pulse 64 07/29/25 06:00 Resp 18 07/29/25 06:00 BP 138/79 07/29/25 06:00 Pulse Ox 98 07/29/25 06:00 O2 Del Method Room Air 07/29/25 06:00 Discharge Plan Discharge Patient Disposition: Home Condition: Stable Prescriptions: New venlafaxine 75 mg Capsule,Extended Release 24hr 75 mg PO DAILY 30 Days Qty: 30 1RF quetiapine 100 mg Tablet 100 mg PO BEDTIME 30 Days Qty: 30 1RF olanzapine 5 mg Tablet,Disintegrating 5 mg PO DAILY PRN (Reason: Agitation/Psychosis) 30 Days Qty: 30 0RF hydroxyzine pamoate 25 mg Capsule 50 mg PO Q6H PRN (Reason: Anxiety) 30 Days Qty: 120 0RF Discharge Order = DC NOW: Discharge Order (Routine); Ordered 07/29/25 Ordered By: Catalino Orozco Referrals: [facility] [Other] - 07/31/25 10:00 am Referral Note: Ask for the screenier Discharge Diet: Regular Discharge Activity: Resume usual activity Patient Instructions: Opioid Safety, Patient Portal & [place] Instructions Coding Level of Care Code Acute Code for Chg Fwd Diagnoses Poison kalyani dermatitis L23.7 Suicidal ideation R45.851 Depression F32.A Bereavement Z63.4 Cannabis use disorder F12.90 Opioid use disorder, severe, on maintenance therapy F11.20
[2025-07-29 12:25] VITALS: BP 138/79; PULSE 64; RESP 18; TEMP 37; O2SAT 98
== END 2025-07-29 14:05 | disposition home or self-care (01) | DRG 881 ==
LOC: ER 11:31 → NP 12:08
PROVIDERS: Admitting Provider Psychiatry & Neurology Psychiatry; Emergency Provider Family Medicine; Visit Provider Psychiatry & Neurology Psychiatry
DX: F32.A Depression, unspecified (principal); R45.851 Suicidal ideations; Z68.41 Body mass index [BMI] 40.0-44.9, adult; F11.20 Opioid dependence, uncomplicated; L23.7 Allergic contact dermatitis due to plants, except food; E66.9 Obesity, unspecified; Z63.4 Disappearance and death of family member; T43.226A Underdosing of selective serotonin reuptake inhibitors, initial encounter; Z91.128 Patient's intentional underdosing of medication regimen for other reason; F41.9 Anxiety disorder, unspecified
CPT/HCPCS: 36415; 80053; 80306; 80307; 85025; 97150; 97165; 99285; J7512; J9999; Q0163